=== PATIENT | male | born 1975 ===

== ENCOUNTER 2023-05-03 12:53 | Emergency (ER) | payer BC ==
[2023-05-03] MEDS ORDERED: oxyCODONE 5 MG Tab PO STA (14:41)
[2023-05-03] MEDS ORDERED: Acetaminophen 500 MG Tab PO STA (14:42)
[2023-05-03] MEDS ORDERED: Ibuprofen 800 MG Tab PO STA (14:45)
[2023-05-03] MEDS ORDERED: Cephalexin 500 MG Cap PO STA (15:51)
== END 2023-05-03 16:15 | disposition home or self-care (01) ==
LOC: MW.ED 12:53
DX: S62.652A Nondisplaced fracture of middle phalanx of right middle finger, initial encounter for closed fracture (principal); X58.XXXA Exposure to other specified factors, initial encounter
CPT/HCPCS: 29125; 73130; 99283; A9270